=== PATIENT | female | born 1940 | race Caucasian/White ===

== ENCOUNTER 2019-10-18 10:06 | Inpatient (IN) | payer OTHER ==
--- NOTE | 2018-10-20 22:10 | NUR ---
PATIENT HAD A BLOOD GLUCOSE RESULT OF 300. 6 UNITS OF HUMALOG GIVEN AT THIS TIME.
[~2019-10-18] VITALS: Ht 162.6 cm; Wt 81.6 kg
--- NOTE | 2019-10-18 10:06 | NUR ---
PT BIBA TO BED 01.
--- NOTE | 2019-10-18 10:22 | NUR ---
78 Y/O F BIBA FROM HOME C/C HYPOGLYCEMIC. PER EMS, SON WITNESSED FALL OF PATIENT AT 0730 HOURS TODAY AND 911 WAS CALLED 0915 HOURS FROM OTHER SON. BOTH CHILDREN POOR HISTORIANS, NO FAMILY AT BEDSIDE. GIVEN DEXTROSE IN FIELD BS OF 21. PT HARD OF HEARING, A/OX3. PER EMS NKA. HX DM,ASTHMA. RX AMOXICILLIN,METRONIDAZOLONE,LORATIDINE. SIDE RAIL X1. NO N/V/D. NO FAMILY AT BEDSIDE
[2019-10-18] MEDS ORDERED: DEXTROSE 50% 50 ML SYR IVP ONE (10:25)
[2019-10-18] MEDS ORDERED: LORA10TA19 PO (10:27)
[2019-10-18] MEDS ORDERED: AMOX500C25 PO (10:27)
[2019-10-18] MEDS ORDERED: [UNRECOGNIZED DRUG - OTHER] PO (10:27)
[2019-10-18] MEDS ORDERED: GAS RELIEF PO (10:27)
--- NOTE | 2019-10-18 10:44 | NUR ---
ERMD AT BEDSIDE
[2019-10-18] MEDS ORDERED: ALBUTEROL 0.083% 2.5 MG/3 ML NEBU INH ONE (11:00)
[2019-10-18] MEDS ORDERED: methylPREDNISolone SS 125 MG/2 ML VIAL IVP ONE (11:00)
[2019-10-18] MEDS ORDERED: IPRATROPIUM 0.02% 0.5 MG/2.5 ML NEBU INH ONE (11:00)
--- NOTE | 2019-10-18 11:13 | NUR ---
LAB AT BEDSIDE
--- NOTE | 2019-10-18 11:13 | NUR ---
RT AT BEDSIDE
--- NOTE | 2019-10-18 11:26 | NUR ---
XRAY AT BEDSIDE
[2019-10-18 11:54] LABS: BASOPHILS # (AUTO) 0.1 K/uL (0.00-0.22); BASOPHILS % (AUTO) 0.5 % (0.0-2.0); EOSINOPHILS # (AUTO) 0.1 K/uL (0-0.4); EOSINOPHILS % (AUTO) 0.6 % (0.0-4.0); HEMATOCRIT 36.6 % (36-48); HEMOGLOBIN 11.7 g/dL (12.0-16.0); LYMPHOCYTES # (AUTO) 1.1 K/uL (2.5-16.5); LYMPHOCYTES % (AUTO) 7.2 % (20.5-51.1); MEAN CORPUSCULAR HEMOGLOBIN 29 pg (27-31); MEAN CORPUSCULAR HGB CONC 32 g/dL (33-37); MONOCYTES # (AUTO) 1.1 K/uL (0.8-1.0); MONOCYTES % (AUTO) 7.3 % (1.7-9.3); NEUTROPHILS # (AUTO) 12.7 K/uL (1.8-7.7); NEUTROPHILS % (AUTO) 84.4 % (42.2-75.2); PLATELET COUNT (AUTO) 459 K/uL (140-450); RED BLOOD CELL COUNT(AUTO) 3.98 MIL/uL (4.20-5.40); RED CELL DISTRIBUTION WIDTH 18.2 % (11.6-13.7); WHITE BLOOD COUNT (AUTO) 15.1 K/uL (4.8-10.8)
[2019-10-18 12:08] LABS: PROTHROMBIN TIME 10.9 secs (10.8-13.4)
[2019-10-18] MEDS ORDERED: ASPIRIN 81 MG TAB.CHEW PO ONE (12:10)
[2019-10-18] MEDS ORDERED: FUROSEMIDE 20 MG/2 ML VIAL IVP ONE (12:10)
[2019-10-18 12:12] LABS: ALBUMIN 2.7 g/dL (3.4-5.0); ANION GAP 9.8 (8-16); ASPARTATE AMINOTRANSFERASE 66 U/L (15-37); CARBON DIOXIDE 28.9 mmol/L (21-32); CHLORIDE 109 mmol/L (98-107); CREATININE 0.6 mg/dL (0.6-1.3); GLUCOSE 79 mg/dL (74-106); SODIUM SERUM 145 mmol/L (136-145); TOTAL BILIRUBIN 2.1 mg/dL (0.0-1.0); UREA NITROGEN, BLOOD 22 mg/dL (7-18)
[2019-10-18] MEDS ORDERED: DEXTROSE 10% 0 ML IV ONE (12:15)
[2019-10-18] MEDS ORDERED: cefTRIAXone 1,000 MG VIAL ONE (12:19)
[2019-10-18 12:42] LABS: POTASSIUM 2.7 mmol/L (3.5-5.1)
[2019-10-18] MEDS ORDERED: MAG SULF 2000 MG/WATER PREMIX 50 ML IV ONE ×2 (12:45→15:48)
[2019-10-18] MEDS ORDERED: KCL 20 MEQ/WATER INJ PREMIX 100 ML IV ONE (12:45)
[2019-10-18] MEDS: DEXTROSE 10% 1,000 ML IV SCH ×3 (12:47→21:19)
[2019-10-18 13:25] LABS: APPEARANCE,URINE SL CLOUDY (CLEAR); BILIRUBIN,URINE 1+ (NEGATIVE); BLOOD, URINE NEGATIVE (NEGATIVE); COLOR,URINE YELLOW (YELLOW); LEUKOCYTE ESTERASE ,URINE TRACE (NEGATIVE); NITRITE, URINE NEGATIVE (NEGATIVE); PH,URINE 5.5 (5.0-9.0); UGLUCOSE NEGATIVE (NEGATIVE)
[2019-10-18 13:36] LABS: HYALINE CASTS, URINE 0-10 /LPF (None Seen); RBC,URINE 0-5 /HPF (0-5)
--- NOTE | 2019-10-18 13:37 | NUR ---
ERMD NOTIFIED OF CHANGE OF RHYTHM AND BLOOD SUGAR. WILL CONTINUE TO MONITOR
--- NOTE | 2019-10-18 14:32 | NUR ---
PT RESTING IN BED, VSS STABLE, SIDE RAIL X2
[2019-10-18 16:30] VITALS: BP 121/65
--- NOTE | 2019-10-18 16:30 | NUR ---
RECEIVED REPORT FROM ER NURSE. PT CAME TO UNIT [facility]MN [facility]. PT WAS TRANSFERRED FROM TO UNIT BED. ADMISSION ASSESSMENT DONE. IV LINE INTACT. PT ON 4L O2 NC. BELONGING LIST SIGNED. NOTED WITH SCABS ON BILATERAL LOWER LEGS. NOTED WITH NON PITTING EDEMA TO LEG FOOT. PT IS HARD OF HEARING. SAFETY MEASURES IN PLACE. CALL LIGHT IN REACH.
--- NOTE | 2019-10-18 16:57 | NUR ---
Patient will be admitted to [facility]. Admited to TELEMETRY. Will go to room 112B. Belongings list completed. Report to MELODIE VASQUEZ.
[2019-10-18] MEDS ORDERED: ACETAMINOPHEN 325 MG TAB PO PRN (17:50)
[2019-10-18] MEDS ORDERED: ONDANSETRON 4 MG/2 ML VIAL IVP PRN (17:50)
[2019-10-18] MEDS ORDERED: HYDROcodone/APAP 5/325 MG 1 TAB TAB PO PRN (17:50)
--- NOTE | 2019-10-18 19:40 | NUR ---
SHIFT REPORT GIVEN TO LABORER VINEYARD NURSE. PT IN STABLE CONDITION. CALL LIGHT IN REACH.
--- NOTE | 2019-10-18 19:45 | NUR ---
RECEIVED PT DAYSHIFT NURSE PT IS SHEMAR GONZALEZ AAOX4 LABORED BREATHIN ON 02 2 LTS VIA NC, ON TELEMETRY SR IV ON RT AC INFUSING WELL AND HL ON LEFT AC PATENT, REPOSITIONED INITIAL ASSESSMLENT DONE
[2019-10-18 20:00] VITALS: BP 111/52
[2019-10-18] MEDS: DEXT 5% / NACL 0.45% 1,000 ML IV SCH (20:00)
[2019-10-18] MEDS: IPRATROPIUM 0.02% 0.5 MG/2.5 ML NEBU INH SCH ×2 (21:13→22:33)
[2019-10-18] MEDS: ALBUTEROL 0.083% 2.5 MG/3 ML NEBU INH SCH (21:13)
[2019-10-18] MEDS: AZITHROMYCIN 500 MG in DEXTROSE 5% 250 ML IV SCH (21:17)
--- NOTE | 2019-10-18 21:25 | NUR ---
RECEIVED PT ON 3L NC WITH SP02 OF 100%; 02 TITRATED TO 2L WITH SPO2 OF 96% AND A WHEEZING BREATH SOUNDS ON THE UPPER LOBES. NO RESPIRATORY DISTRESS NOTED AT THIS TIME. HHN TX GIVEN ORDERED WITH NO ADVERSE REACTION. FAMILY AT BEDSIDE. WILL CONTINUE TO MONITOR PT
[2019-10-18] MEDS ORDERED: DEXTROSE 50% 50 ML SYR IVP PRN (21:45)
--- NOTE | 2019-10-18 22:00 | NUR ---
PT AWAKE ON BREATHING TX , ON TELMETRY SR NOT DISTRESS NOTED
[2019-10-18] MEDS: BLOOD GLUCOSE MONITORING 1 DEV DEV FS SCH (22:33)
[2019-10-18] MEDS: INSULIN LISPRO SLIDING SCALE 100 UNITS/ML VIAL SUBQ PRN (22:34)
[2019-10-19] VITALS: BP 107/57
[2019-10-19] MEDS: ALBUTEROL 0.083% 2.5 MG/3 ML NEBU INH SCH ×4 (01:35→19:46)
--- NOTE | 2019-10-19 01:44 | NUR ---
PT SEEN AT THIS TIME WITH NO RESPIRATORY DISTRESS. HHN TX GIVEN ORDERED WITH NO ADVERSE REACTION. WILL CONTINUE TO MONITOR PT.
[2019-10-19] MEDS: DEXT 5% / NACL 0.45% 1,000 ML IV SCH ×2 (02:00→06:58)
--- NOTE | 2019-10-19 02:09 | NUR ---
PT AFTER BREATHING TX REMAIN STABLE NOT DISTRESS NOTED AND PT SLEEPING WELL ON TELE SR
[2019-10-19 04:00] VITALS: BP 108/47
[2019-10-19] MEDS: BLOOD GLUCOSE MONITORING 1 DEV DEV FS SCH ×3 (06:55→21:23)
[2019-10-19] MEDS: INSULIN LISPRO SLIDING SCALE 100 UNITS/ML VIAL SUBQ PRN ×3 (07:03→21:26)
[2019-10-19 07:13] LABS: BASOPHILS # (AUTO) 0.1 K/uL (0.00-0.22); BASOPHILS % (AUTO) 0.6 % (0.0-2.0); EOSINOPHILS # (AUTO) 0.1 K/uL (0-0.4); EOSINOPHILS % (AUTO) 0.7 % (0.0-4.0); HEMATOCRIT 28.7 % (36-48); HEMOGLOBIN 9.2 g/dL (12.0-16.0); LYMPHOCYTES # (AUTO) 1.4 K/uL (2.5-16.5); LYMPHOCYTES % (AUTO) 12.4 % (20.5-51.1); MEAN CORPUSCULAR HEMOGLOBIN 29 pg (27-31); MEAN CORPUSCULAR HGB CONC 32 g/dL (33-37); MEAN CORPUSCULAR VOLUME 91.4 fL (80-94); MONOCYTES # (AUTO) 1.8 K/uL (0.8-1.0); MONOCYTES % (AUTO) 16.1 % (1.7-9.3); NEUTROPHILS # (AUTO) 7.8 K/uL (1.8-7.7); NEUTROPHILS % (AUTO) 70.2 % (42.2-75.2); PLATELET COUNT (AUTO) 397 K/uL (140-450); RED BLOOD CELL COUNT(AUTO) 3.14 MIL/uL (4.20-5.40); RED CELL DISTRIBUTION WIDTH 18.2 % (11.6-13.7)
--- NOTE | 2019-10-19 07:15 | NUR ---
RECEIVED REPORT FROM ASSOCIATE STORE MANAGER NURSE. PT IS RESTING IN BED. AOX4, NO SIGNS OF DISTRESS. PT HAS RT HAND 20G WITH D5 1/2 NS INFUSING AT 75ML/HR. CALL LIGHT WITHIN PT'S REACH, BED ON LOW, SIDERAILS UP. WILL CONTINUE TO MONITOR
[2019-10-19 08:00] VITALS: BP 100/50
--- NOTE | 2019-10-19 08:20 | NUR ---
PT IS SITTING ON HER BED EATING BREAKFAST. NO SIGNS OF DISTRESS. SCHEDULED MEDS GIVEN. CALL LIGHT WITHIN PT'S REACH. WILL CONTINUE TO MONITOR
[2019-10-19] MEDS: methylPREDNISolone SS 40 MG/ML VIAL IVP SCH (08:28)
[2019-10-19] MEDS: ENOXAPARIN 30 MG/0.3 ML SYR SUBQ SCH (08:30)
--- NOTE | 2019-10-19 08:31 | NUR ---
PATIENT HAS BEEN SCREENED AND CATEGORIZED MODERATE NUTRITION RISK. PATIENT WILL BE SEEN WITHIN 3-5 DAYS OF ADMISSION. 10/21/19 10/23/[address]
--- NOTE | 2019-10-19 08:34 | NUR ---
AWAKE AND ALERT NO SOB NOTED PATIENT WITH BREAK FAST TRAY AT THIS TIME SEAT COVER MAKER TO ATTEMPT HHN THERAPY AND RESPIRATORY DRUGS AT A LATER TIME
--- NOTE | 2019-10-19 08:40 | NUR ---
PATIENT HAS BEEN SCREENED AND CATEGORIZED MODERATE NUTRITION RISK. PATIENT WILL BE SEEN WITHIN 3-5 DAYS OF ADMISSION. 10/21/19 10/23/[address]
[2019-10-19] MEDS: IPRATROPIUM 0.02% 0.5 MG/2.5 ML NEBU INH SCH ×3 (10:23→19:46)
[2019-10-19 12:00] VITALS: BP 100/52
--- NOTE | 2019-10-19 13:15 | NUR ---
SCHEDULED MEDS GIVEN. PT IS SITTING ON BED. NO SIGNS OF DISTRESS. CALL LIGHT WITHIN PT'S REACH. WILL CONTINUE TO MONITOR
--- NOTE | 2019-10-19 14:43 | NUR ---
SATURATION 90% ON SUPPLEMENTAL OXYGEN AT 2 LPM VIA NC POST HHN THERAPY INCREASED FIO2 TO 3 LPM SENIOR LINUX ENGINEER TO NOTIFY RN
--- NOTE | 2019-10-19 15:23 | NUR ---
GASTON/RN NOTIFIED OF INCREASED FIO2 TO 3 LPM VIA NC
[2019-10-19 16:00] VITALS: BP 101/49
--- NOTE | 2019-10-19 16:00 | NUR ---
FREQUENT ROUNDING DONE. ASSIST SEAT INSTALLER IN CLEANING THE PT.
--- NOTE | 2019-10-19 16:30 | NUR ---
BLD GLUCOSE CHECKED = 331. 8 UNITS GIVEN. SCHEDULED MEDS GIVEN WELL. PT IS STABLE. NO SIGNS OF DISTRESS. CALL LIGHT WITHIN PT'S REACH. WILL CONTINUE TO MONITOR
[2019-10-19] MEDS: LIDOCAINE VISCOUS 2% 20 ML UDC PO SCH (16:58)
--- NOTE | 2019-10-19 19:05 | NUR ---
WOUND PHOTOGRAPH TAKEN AND ATTACHED TO CHART. PT HAS NEW BLISTER LIKE WOUND IN THE RIGHT LOWER LEG.
--- NOTE | 2019-10-19 19:20 | NUR ---
REPORT GIVEN TO BANDSAW OPERATOR NURSE FOR CONTINUITY OF CARE. PT IS STABLE, NO SIGNS OF DISTRESS. CALL LIGHT WITHIN PT'S REACH, BED ON LOW, SIDERAILS UP.
--- NOTE | 2019-10-19 19:25 | NUR ---
RECEIVED PT FROM DAY SHIFT NURSE PT AAOX4 ON BED REST AND LABORED BRETHING ON 4 LTS VIA NC SAT [address] IV ON LEFT AC INGUSING WELL PT REPOSITIONED INITIAL ASSESSMENT DONE,
[2019-10-19 20:00] VITALS: BP 119/58
[2019-10-19] MEDS: AZITHROMYCIN 500 MG in DEXTROSE 5% 250 ML IV SCH (21:17)
--- NOTE | 2019-10-19 21:30 | NUR ---
BLOOD SUGAR TEST 258 COVERAGE WITH 6 UNITS HUMALOG FOLLOW PROTOCL AND HS SNACK IS GIVEN
[2019-10-19] MEDS ORDERED: TRANSPARENT DRESSING TP PRN (22:55)
[2019-10-20] VITALS: BP 101/59
[2019-10-20] MEDS: IPRATROPIUM 0.02% 0.5 MG/2.5 ML NEBU INH SCH ×4 (01:43→19:33)
[2019-10-20] MEDS: ALBUTEROL 0.083% 2.5 MG/3 ML NEBU INH SCH ×4 (01:44→19:33)
--- NOTE | 2019-10-20 01:56 | NUR ---
PT HAS BEEN MONITORING CLOSE ON TELMETRY SR ON 10 24 LTS VIA NC, REPOSITIONED Q2H NOT DISTRESS NOTED
[2019-10-20 04:00] VITALS: BP 104/49
--- NOTE | 2019-10-20 04:00 | NUR ---
SPONGE BATH GIVEN LINEN CHANGED NOT SOB NOTED ON TELE SR , IV ON LEFT AC INFUSING WELL
[2019-10-20] MEDS: BLOOD GLUCOSE MONITORING 1 DEV DEV FS SCH ×4 (06:39→21:00)
[2019-10-20] MEDS: INSULIN LISPRO SLIDING SCALE 100 UNITS/ML VIAL SUBQ PRN ×3 (06:41→22:18)
--- NOTE | 2019-10-20 07:05 | NUR ---
BLOOD SUGAR TEST 189 COVERAGEWITH2 UNITS SUBQ HUMALOG ORDER ANDFOLLOW PROTOCOL
--- NOTE | 2019-10-20 07:15 | NUR ---
RECEIVED REPORT FROM TOOL CLERK NURSE NOLAN FOR CONTINUITY OF CARE. PT IN STABLE CONDITION. RESPIRATIONS EVEN AND UNLABORED, 02 3L VIA NC. IV INTACT AND PATENT. SAFETY MEASURES IN PLACE. BED IN LOW POSITION. BED ALARM ON. CALL LIGHT AT BEDSIDE. WILL CONTINUE TO MONITOR.
[2019-10-20 07:33] LABS: BASOPHILS # (AUTO) 0.1 K/uL (0.00-0.22); BASOPHILS % (AUTO) 0.5 % (0.0-2.0); EOSINOPHILS # (AUTO) 0.3 K/uL (0-0.4); EOSINOPHILS % (AUTO) 2.7 % (0.0-4.0); HEMATOCRIT 28.8 % (36-48); HEMOGLOBIN 9.2 g/dL (12.0-16.0); LYMPHOCYTES # (AUTO) 1.6 K/uL (2.5-16.5); LYMPHOCYTES % (AUTO) 15.8 % (20.5-51.1); MEAN CORPUSCULAR HEMOGLOBIN 29 pg (27-31); MEAN CORPUSCULAR HGB CONC 32 g/dL (33-37); MEAN CORPUSCULAR VOLUME 91.3 fL (80-94); MONOCYTES # (AUTO) 1.4 K/uL (0.8-1.0); MONOCYTES % (AUTO) 13.6 % (1.7-9.3); NEUTROPHILS # (AUTO) 6.9 K/uL (1.8-7.7); NEUTROPHILS % (AUTO) 67.4 % (42.2-75.2); PLATELET COUNT (AUTO) 355 K/uL (140-450); RED BLOOD CELL COUNT(AUTO) 3.15 MIL/uL (4.20-5.40); RED CELL DISTRIBUTION WIDTH 17.9 % (11.6-13.7); WHITE BLOOD COUNT (AUTO) 10.3 K/uL (4.8-10.8)
[2019-10-20 07:37] LABS: CHLORIDE 107 mmol/L (98-107); CREATININE 0.9 mg/dL (0.6-1.3); GLUCOSE 191 mg/dL (74-106); POTASSIUM 3.6 mmol/L (3.5-5.1); SODIUM SERUM 141 mmol/L (136-145); UREA NITROGEN, BLOOD 28 mg/dL (7-18)
[2019-10-20 07:38] LABS: ANION GAP 10.2 (8-16); CARBON DIOXIDE 27.4 mmol/L (21-32)
[2019-10-20 08:00] VITALS: BP 103/49
[2019-10-20] MEDS: FUROSEMIDE 40 MG/4 ML VIAL IVP SCH ×2 (08:30→17:23)
[2019-10-20] MEDS: methylPREDNISolone SS 40 MG/ML VIAL IVP SCH (08:31)
[2019-10-20] MEDS: LIDOCAINE VISCOUS 2% 20 ML UDC PO SCH ×3 (08:48→17:23)
[2019-10-20] MEDS: ENOXAPARIN 30 MG/0.3 ML SYR SUBQ SCH (08:53)
[2019-10-20] MEDS: DEXT 5% / NACL 0.45% 1,000 ML IV SCH ×2 (08:54→22:12)
[2019-10-20] MEDS: MILD SOAP AND WATER TP SCH (08:55)
--- NOTE | 2019-10-20 08:56 | NUR ---
GAVE ORDERED DUE MEDICATIONS AT THIS TIME. PT TOLERATED WELL. WILL CONTINUE TO MONITOR.
--- NOTE | 2019-10-20 10:30 | NUR ---
PT REFUSED ABG.
--- NOTE | 2019-10-20 10:33 | NUR ---
CHANGED LINENS AND CLEANED AT THIS TIME. PT TOLERATED WELL. RESPIRATIONS EVEN AND UNLABORED. BED IN LOW POSITION. BED ALARM ON. CALL LIGHT AT BEDSIDE. WILL CONTINUE TO MONITOR
[2019-10-20 12:00] VITALS: BP 100/51
--- NOTE | 2019-10-20 12:59 | NUR ---
PT EATING LUNCH AT THIS TIME. RESPIRATIONS EVEN AND UNLABORED. BED IN LOW POSITION. BED ALARM ON. CALL LIGHT AT BEDSIDE. WILL CONTINUE TO MONITOR
--- NOTE | 2019-10-20 13:57 | NUR ---
DC PLANN[age] YRS OLD FEMALE WAS ADMITTED FROM HOME WITH A DX OF CHF, PNA, AND HYPOGLYCEMIA K+2.7. PT HAS A HX OF ASTHMA DM, HTN AND HYPERLIPIDEMIA. ADMINISTERED K-RIDER ,SOLU-MEDROL , ROCEPHIN AND ZITHROMAX IV ABX AND LASIX IV , RT PROTOCOL ,BLOOD, URINE AND SPUTUM CULTURE.DC PLAN TO GO HOME WHEN STABLE CM TO FOLLOW Addendum: 10/23/19 at 0920 by Bethany Ansari CM DC PLANNING: FAXED TO [facility] , WAITING FOR PHYSICAL THERAPY NOTE CM TO FOLLOW Addendum: 10/23/19 at 1328 by Bethany Ansari CM DC PLANNING RECEIVED A CALL FROM [facility] UNABLE TO ACCEPT THE PT BECAUSE THEY ARE NOT CONTRACTED WITH THE INSURANCE CALLED SURENDRA [facility]ILK[facility] AT [phone] STATED TO TRY ALL IN HOME HEALTH,NO ANSWER [facility] STATED THEY DON'T HAVE AN RN SERVED IN [facility] AT [phone] FAXED ALL THE PAPER WORK [phone] WILL CALL US BACK. Addendum: 10/23/19 at 1503 by Bethany Ansari DC PLANNING I RECEIVED A CALL FROM [facility] [phone] IS ACCEPTING THE PATIENT AND WILL START THE CARE TOMORROW
[2019-10-20] MEDS: LORazepam 2 MG/ML VIAL IVP PRN ×2 (14:40→22:12)
--- NOTE | 2019-10-20 14:43 | NUR ---
PT SLEEPING AT THIS TIME. RESPIRATIONS EVEN AND UNLABORED. BED IN LOW POSITION. BED ALARM ON. CALL LIGHT AT BEDSIDE. WILL CONTINUE TO MONITOR
[2019-10-20 16:00] VITALS: BP 107/53
--- NOTE | 2019-10-20 16:58 | NUR ---
PT RELATIVE MARITA (SISTER) CALLED INFORMED THEM THAT THEY NEEDED TO SPEAK TO PT ABOUT CONDITION DUE TO HIPPA.
--- NOTE | 2019-10-20 17:50 | NUR ---
ASSISTED PT WITH CALLING DAUGHTER ALLISON . PT ABLE TO TALK IN STABLE CONDITION. RESPIRATIONS EVEN AND UNLABORED. BED IN LOW POSITION. BED ALARM ON. CALL LIGHT AT BEDSIDE. WILL CONTINUE TO MONITOR
--- NOTE | 2019-10-20 19:31 | NUR ---
GAVE REPORT TO FITTER ARMAMENT NURSE FOR CONTINUITY OF CARE. PT IN STABLE CONDITION.
--- NOTE | 2019-10-20 19:32 | NUR ---
RECEIVED BEDSIDE SHIFT REPORT FROM AM SHIFT NURSE HILARIO. PATIENT IS LYING ON BED IN HIGH FOWLERS, AWAKE AND ALERT. NO SOB OR DISTRESS NOTED, ON 3LPM VIA NASAL CANNULA. IV ACCESS ON LEFT AC 20 GAUGE, PATENT, INTACT AND INFUSING WELL. NOTED WITH BLISTERS ON LOWER EXTREMITIES. BED IN LOW, SAFETY PRECAUTIONS IN PLACE. BOARD UPDATED. CALL LIGHT PLACED WITHIN PATIENT REACH. WILL CONTINUE TO MONITOR PATIENT.
[2019-10-20] MEDS: AZITHROMYCIN 500 MG in DEXTROSE 5% 250 ML IV SCH (22:01)
--- NOTE | 2019-10-20 22:10 | NUR ---
PATIENT HAD A BLOOD GLUCOSE RESULT OF 300. 6 UNITS OF HUMALOG GIVEN AT THIS TIME. Addendum: 10/21/19 at 0048 by Paulette Licona RN WRONG YEAR- NEW NOTE MADE
[2019-10-21 01:00] VITALS: BP 107/60
[2019-10-21] MEDS: ALBUTEROL 0.083% 2.5 MG/3 ML NEBU INH SCH ×4 (01:00→20:36)
[2019-10-21] MEDS: IPRATROPIUM 0.02% 0.5 MG/2.5 ML NEBU INH SCH ×4 (01:00→19:00)
--- NOTE | 2019-10-21 02:00 | NUR ---
PATIENT IN STABLE CONDITION. ENDORSED TO CHARGE NURSE MAYUR FOR CONTINUITY OF CARE.
--- NOTE | 2019-10-21 02:01 | NUR ---
RECEIVED PT SLEEPING, OPEN EYES TO NAME, SPEAKS IN FULL SENTENCES, NO SOB NOTED, IVF INFUSING WELL, SAFETY MEASURES IN PLACE, CALL LIGHT WITHIN REACH, MONITORED CLOSELY
[2019-10-21 03:30] VITALS: BP 115/68
--- NOTE | 2019-10-21 03:30 | NUR ---
PT SEEN AWAKE, AUDIBLE WHEEZING NOTED, PAGED RT RADJE, WILL COME AND GIVE BREATHING TX, VITAL SIGNS STABLE, 95% ON O2 3L NC, IVF INFUSING WELL, MONITORED CLOSELY.
--- NOTE | 2019-10-21 05:00 | NUR ---
IV LINE INFILTRATED, CANNULA INTACT, NEW IV LINE INSERTED TO RT HAND, RESUMED IVF OF D5 1/2 NS AT 75ML/H, MONITORED CLOSELY.
[2019-10-21] MEDS: INSULIN LISPRO SLIDING SCALE 100 UNITS/ML VIAL SUBQ PRN ×4 (05:48→21:15)
--- NOTE | 2019-10-21 05:50 | NUR ---
PT AWAKE, AAOX4, MILD SOB WHEN TALKING BUT ABLE TO SPEAK IN COMPLETE SENTENCE, MAINTAINED ON O2 AT 3L NC, BLOOD SUGAR CHECKED WITH 218 RESULT, COVERAGE GIVEN, PT REQUESTING IF SHE CAN TALKED TO HER GREG, NO NUMBER ON FILE, TALKED TO SON ALENA, STATED HE WILL CALL BACK TO GIVE GREG'S (STEPFATHER) NUMBER, PT MADE AWARE, PT WATCHING TV AT THIS TIME, NO DISTRESS NOTED, MONITORED CLOSELY.
[2019-10-21] MEDS: BLOOD GLUCOSE MONITORING 1 DEV DEV FS SCH ×4 (06:30→21:00)
[2019-10-21 06:46] LABS: BASOPHILS # (AUTO) 0.1 K/uL (0.00-0.22); BASOPHILS % (AUTO) 0.7 % (0.0-2.0); EOSINOPHILS # (AUTO) 0.3 K/uL (0-0.4); EOSINOPHILS % (AUTO) 2.4 % (0.0-4.0); HEMATOCRIT 27.9 % (36-48); LYMPHOCYTES # (AUTO) 1.5 K/uL (2.5-16.5); LYMPHOCYTES % (AUTO) 13.4 % (20.5-51.1); MEAN CORPUSCULAR HEMOGLOBIN 30 pg (27-31); MEAN CORPUSCULAR HGB CONC 32 g/dL (33-37); MEAN CORPUSCULAR VOLUME 92.3 fL (80-94); MONOCYTES # (AUTO) 1.6 K/uL (0.8-1.0); MONOCYTES % (AUTO) 13.6 % (1.7-9.3); NEUTROPHILS # (AUTO) 7.9 K/uL (1.8-7.7); NEUTROPHILS % (AUTO) 69.9 % (42.2-75.2); PLATELET COUNT (AUTO) 363 K/uL (140-450); RED BLOOD CELL COUNT(AUTO) 3.02 MIL/uL (4.20-5.40); RED CELL DISTRIBUTION WIDTH 17.9 % (11.6-13.7); WHITE BLOOD COUNT (AUTO) 11.4 K/uL (4.8-10.8)
[2019-10-21 07:30] LABS: ANION GAP 8.5 (8-16); CARBON DIOXIDE 30.2 mmol/L (21-32); CHLORIDE 108 mmol/L (98-107); CREATININE 0.8 mg/dL (0.6-1.3); GLUCOSE 233 mg/dL (74-106); POTASSIUM 3.7 mmol/L (3.5-5.1); SODIUM SERUM 143 mmol/L (136-145); UREA NITROGEN, BLOOD 27 mg/dL (7-18)
--- NOTE | 2019-10-21 07:30 | NUR ---
RECEIVED BEDSIDE REPORT FROM NIGHTSHIFT NURSE. PT LYING IN BED UPON ARRIVAL. ABLE TO MAKE NEEDS KNOWN. SKIN WARM AND DRY TO TOUCH. RESPIRATIONS EVEN AND UNLABORED WITH MILD SOB WHEN TALKING. NO RESPIRATORY DISTRESS NOTED. NC RUNNING AT 3L. IV SITE IN R HAND 22G IS CLEAN, DRY, AND INTACT. SAFETY MEASURES IN PLACE. WILL CONTINUE TO MONITOR.
[2019-10-21 08:00] VITALS: BP 108/57
[2019-10-21] MEDS: LIDOCAINE VISCOUS 2% 20 ML UDC PO SCH ×3 (08:14→17:15)
[2019-10-21] MEDS: FUROSEMIDE 40 MG/4 ML VIAL IVP SCH ×2 (08:15→17:15)
--- NOTE | 2019-10-21 08:15 | NUR ---
ADMINISTERED SCHED MED PRESCRIBED PER MD ORDER. PT TOLERATED WELL. MEDICATION EDUCATION PERFORMED. PT VERBALIZED UNDERSTANDING. WILL CONTINUE TO MONITOR.
[2019-10-21] MEDS: methylPREDNISolone SS 40 MG/ML VIAL IVP SCH (08:16)
[2019-10-21] MEDS: ENOXAPARIN 30 MG/0.3 ML SYR SUBQ SCH (08:17)
[2019-10-21 12:00] VITALS: BP 147/81
--- NOTE | 2019-10-21 12:23 | NUR ---
ADMINISTERED SCHED MED PRESCRIBED PER MD ORDER. PT TOLERATED WELL. MEDICATION EDUCATION PERFORMED. PT VERBALIZED UNDERSTANDING. WILL CONTINUE TO MONITOR.
[2019-10-21] MEDS: DEXT 5% / NACL 0.45% 1,000 ML IV SCH (12:38)
[2019-10-21 16:00] VITALS: BP 130/65
--- NOTE | 2019-10-21 16:11 | NUR ---
HOURLY ROUNDING. PT LYING IN BED UPON ARRIVAL. FLACC 0. SKIN WARM AND DRY TO TOUCH. RESPIRATIONS EVEN AND UNLABORED WITH NO SOB OR RESPIRATORY DISTRESS. SAFETY MEASURES IN PLACE. WILL CONTINUE TO MONITOR.
--- NOTE | 2019-10-21 17:22 | NUR ---
ADMINISTERED SCHED MED PRESCRIBED PER MD ORDER. PT TOLERATED WELL. MEDICATION EDUCATION PERFORMED. PT VERBALIZED UNDERSTANDING. WILL CONTINUE TO MONITOR.
--- NOTE | 2019-10-21 19:32 | NUR ---
ENDORSED TO [facility] NURSE. PT LYING IN BED UPON ARRIVAL. FLACC 0 . SKIN WARM AND DRY TO TOUCH. RESPIRATIONS EVEN AND UNLABORED WITH NO SOB OR RESPIRATORY DISTRESS. SAFETY MEASURES IN PLACE. PT IS STABLE
--- NOTE | 2019-10-21 19:33 | NUR ---
RECEIVED REPORT FROM DAY SHIFT NURSE. PT LYING IN BED, AAOX4. DENIES PAIN. ON O2 AT 3L/MIN VIA NC. NO SOB NOTED. IV TO RIGHT HAND #22G, D51/2NS AT 75 ML/HR, INFUSING WELL. PT HAS BLISTERS ON RIGHT LOWER LEG WITH TRANSPARENT DRESSING. SCABS ON LEFT LEG, MINING MANAGER. SAFETY PRECAUTION IN PLACE. CALL LIGHT WITHIN REACH.
[2019-10-21 20:00] VITALS: BP 109/55
--- NOTE | 2019-10-21 21:00 | NUR ---
ASKED RT TO HELP COLLECT SPUTUM FROM PT. PER RT, PT UNABLE TO COUGH OUT SPUTUM AFTER BREATHING TREATMENT. PER PT, SHE WANTS TO REST FOR NOW AND SHE WILL TRY AGAIN TOMORROW MORNING.
--- NOTE | 2019-10-21 21:15 | NUR ---
PT'S BLOOD SUGAR 297. PT'S BLOOD SUGAR TODAY ON HIGH 300'S. PT ON IVF D5 1/2NS AT 75 ML/HR AND ON REGULAR DIET. WILL PAGE DR. CUADRA IF HE STILL WANTS TO CONTINUE IVF D5 1/2NS AT 75 ML/HR.
[2019-10-21] MEDS: AZITHROMYCIN 500 MG in DEXTROSE 5% 250 ML IV SCH (21:17)
--- NOTE | 2019-10-21 21:40 | NUR ---
RECEIVED A CALL FROM DR. PEARCE, MISSILE CONTROL PILOT FOR DR. CUADRA. MADE AWARE OF PT'S BLOOD SUGAR FOR TODAY. MD ORDERED TO CHANGE THE DIET FROM REGULAR TO CCHO DIET AND DISCONTINUE IVF D5 1/2NS.
[2019-10-22] VITALS: BP 111/59
--- NOTE | 2019-10-22 00:10 | NUR ---
PT LYING COMFORTABLY IN BED. V/S TAKEN. ALL NEEDS ATTENDED AT THIS TIME. FALL PRECAUTION IN PLACE. CALL LIGHT WITHIN REACH.
[2019-10-22] MEDS: IPRATROPIUM 0.02% 0.5 MG/2.5 ML NEBU INH SCH (01:00)
[2019-10-22] MEDS: ALBUTEROL 0.083% 2.5 MG/3 ML NEBU INH SCH (01:00)
--- NOTE | 2019-10-22 03:00 | NUR ---
PT SLEEPING BUT EASILY AROUSABLE. RESP EVEN AND UNLABORED. NO S/S OF PAIN OR DISCOMFORT. CALL LIGHT WITHIN REACH.
[2019-10-22 04:00] VITALS: BP 132/63
--- NOTE | 2019-10-22 05:00 | NUR ---
PT RESTING IN BED WITH EYES CLOSED. NO S/S OF RESP DISTRESS. NO S/S OF PAIN OR DISCOMFORT.
[2019-10-22] MEDS: INSULIN LISPRO SLIDING SCALE 100 UNITS/ML VIAL SUBQ PRN ×4 (06:15→21:16)
[2019-10-22] MEDS: ALBUTEROL 0.083% 2.5 MG/3 ML NEBU INH PRN (06:26)
--- NOTE | 2019-10-22 06:29 | NUR ---
PT'S BLOOD SUGAR 202. 4 UNITS OF HUMALOG SUBQ GIVEN.
[2019-10-22] MEDS: BLOOD GLUCOSE MONITORING 1 DEV DEV FS SCH ×4 (06:31→21:16)
--- NOTE | 2019-10-22 07:05 | NUR ---
ENDORSED PT TO DAY SHIFT NURSE. PT IN STABLE CONDITION.
--- NOTE | 2019-10-22 07:10 | NUR ---
RECEIVED BEDSIDE REPORT FROM NIGHTSHIFT NURSE. PT RESTING IN BED UPON ARRIVAL. ABLE TO MAKE NEEDS KNOWN. RESPIRATIONS EVEN AND UNLABORED WITH NO SOB OR RESPIRATORY DISTRESS. SKIN WARM AND DRY TO TOUCH. IV SITE IN RIGHT HAND 22G IS CLEAN, DRY, AND INTACT. SAFETY MEASURES IN PLACE. WILL CONTINUE TO MONITOR.
[2019-10-22 08:00] VITALS: BP 119/93
[2019-10-22] MEDS: LIDOCAINE VISCOUS 2% 20 ML UDC PO SCH ×3 (08:38→17:44)
[2019-10-22] MEDS: ENOXAPARIN 30 MG/0.3 ML SYR SUBQ SCH (08:41)
[2019-10-22] MEDS: methylPREDNISolone SS 40 MG/ML VIAL IVP SCH (08:42)
[2019-10-22] MEDS: FUROSEMIDE 40 MG/4 ML VIAL IVP SCH ×2 (08:42→17:44)
--- NOTE | 2019-10-22 08:42 | NUR ---
ADMINISTERED SCHED MED PRESCRIBED PER MD ORDER. PT TOLERATED WELL. MEDICATION EDUCATION PERFORMED. PT VERBALIZED UNDERSTANDING. SAFETY MEASURES IN PLACE. WILL CONTINUE TO MONITOR.
--- NOTE | 2019-10-22 10:19 | NUR ---
PHYSICIAN PUT IN ORDER FOR DC TODAY. PT IS AWARE AND REQUESTED TO LEAVE SHORTLY AFTER LUNCH. SAFETY MEASURES IN PLACE. WILL CONTINUE TO MONITOR.
[2019-10-22] MEDS ORDERED: FURO-572 PO (10:30)
[2019-10-22] MEDS ORDERED: PRED20TA5 PO (10:49)
[2019-10-22] MEDS ORDERED: Z-PACK (10:50)
--- NOTE | 2019-10-22 11:30 | NUR ---
CALLED PT SON ANDRESSA TO CONFIRM THAT HE WAS GOING TO BE TAKING THE PT HOME AND HE SAID HE HAS A ANALYTICAL TECH COMING TO THE PATIENT'S ROOM TO SIGN SOME DOCUMENTS AROUND 1300 SO HE REQUESTED HER TO LEAVE AFTER THEY ARE FINISHED WITH THEIR MEETING. SAFETY MEASURES IN PLACE WILL CONTINUE TO MONITOR
[2019-10-22 12:00] VITALS: BP 128/78
--- NOTE | 2019-10-22 12:36 | NUR ---
ADMINISTERED SCHED MED PRESCRIBED PER MD ORDER. PT TOLERATED WELL. MEDICATION EDUCATION PERFORMED. PT VERBALIZED UNDERSTANDING. SAFETY MEASURES IN PLACE. WILL CONTINUE TO MONITOR.
[2019-10-22] MEDS: ALBUTEROL SULFATE/IPRATROPIU 3 ML SOL IH SCH ×2 (12:58→19:54)
--- NOTE | 2019-10-22 12:58 | NUR ---
PT REFUSED BREATHING TX STATING THAT HER NOSE HURTS NO SIGNS OF DISTRESS OR SOB AT THIS TIME
--- NOTE | 2019-10-22 13:48 | NUR ---
ADMINISTERED SCHED MED PRESCRIBED PER MD ORDER. PT TOLERATED WELL. MEDICATION EDUCATION PERFORMED. PT VERBALIZED UNDERSTANDING. SAFETY MEASURES IN PLACE. WILL CONTINUE TO MONITOR.
--- NOTE | 2019-10-22 14:15 | NUR ---
SPOKE WITH SON ANDRESSA AT BEDSIDE. SON SAID THAT HE DOES NOT HAVE A WAY FOR THE PT TO GET HOME SINCE HE RODE HIS BICYCLE TO THE HOSPITAL. PT AND FAMILY WERE EDUCATED THAT WE COULD PROVIDE TRANSPORTATION SUCH A [place] FOR THEM. ANDRESSA SAID THAT HE DOES NOT HAVE THE KEYS TO THE PT'S HOUSE NOR THE PT'S WALKER. PT IS UNABLE TO WALK WITHOUT ASSISTANCE. THE SON THAT LIVES WITH THE PT IS NOT HOME TO HELP TAKE CARE OF PT NOR IS HE ABLE TO GRAB THE KEYS AND WALKER. SON ALSO DID NOT ANSWER WHEN CALLED. PT ALSO REFUSED BEING TRANSFERRED TO SNF. PT SAID THAT SHE DOES NOT WANT TO GO TO A SNF. WHEN EDUCATED THAT IT WOULD ONLY BE TEMPORARY, PT STILL REFUSED BEING TRANSFERRED. DR. HESTER WAS PAGED AND HE PUT IN AN ORDER TO CANCEL THE DISCHARGE AND TO TRY AGAIN TOMORROW. SAFETY MEASURES IN PLACE. WILL CONTINUE TO MONITOR
--- NOTE | 2019-10-22 15:30 | NUR ---
HOURLY ROUNDING. PT RESTING IN BED. UPON ARRIVAL. ABLE TO MAKE NEEDS KNOWN. RESPIRATIONS EVEN AND UNLABORED WITH NO SOB OR RESPIRATORY DISTRESS. SKIN WARM AND DRY TO TOUCH. SAFETY MEASURES IN PLACE. WILL CONTINUE TO MONITOR
[2019-10-22 16:00] VITALS: BP 132/63
--- NOTE | 2019-10-22 16:30 | NUR ---
PT BLOOD SUGAR IS 356. 10 UNITS OF INSULIN WILL BE GIVEN WITH DINNER. SAFETY MEASURES IN PLACE. WILL CONTINUE TO MONITOR.
--- NOTE | 2019-10-22 17:45 | NUR ---
ADMINISTERED SCHED MED PRESCRIBED PER MD ORDER. PT TOLERATED WELL. MEDICATION EDUCATION PERFORMED. PT VERBALIZED UNDERSTANDING. SAFETY MEASURES IN PLACE. WILL CONTINUE TO MONITOR.
--- NOTE | 2019-10-22 19:15 | NUR ---
RECIEVED PT AAOX4 , NID , IV SITE INTACT AND PATENT , NO CO/O PAIN AT THIS TIME . ON SAFETY / FALL PRECAUTION PROTOCOL - CALL LIGHT WITHIN REACH . POC DISCUSSED AND VERBALIZE UNDERSTANDING . WILL CONT. TO MONITOR.
--- NOTE | 2019-10-22 19:15 | NUR ---
ENDORSED TO NIGHTSHIFT NURSE. PT RESTING IN BED UPON ARRIVAL. ABLE TO MAKE NEEDS KNOWN. RESPIRATIONS EVEN AND UNLABORED WITH NO SOB OR RESPIRATORY DISTRESS. SAFETY MEASURES IN PLACE. PT IS STABLE.
[2019-10-22 20:00] VITALS: BP 130/70
[2019-10-22] MEDS: AZITHROMYCIN 500 MG in DEXTROSE 5% 250 ML IV SCH (20:52)
--- NOTE | 2019-10-22 22:00 | NUR ---
MADE ROUNDS . NO S/SXS OF ACUTE DISTRESS NOTED AT THIS TIME . CALL LIGHT WITHIN REACH.
[2019-10-23] VITALS: BP 133/70
--- NOTE | 2019-10-23 | NUR ---
MADE ROUNDS . BREATHING UNLABORED AND EVEN . - ON FISH CLEANER MACHINE TENDER . WILL CONT. TO MONITOR.
[2019-10-23] MEDS: ALBUTEROL SULFATE/IPRATROPIU 3 ML SOL IH SCH ×3 (01:17→13:54)
--- NOTE | 2019-10-23 02:00 | NUR ---
SLEEPING - CHEST RISE AND FALL EQUALLY - CALL LIGHT WITHIN REACH.
[2019-10-23 04:00] VITALS: BP 120/73
--- NOTE | 2019-10-23 04:00 | NUR ---
MADE ROUNDS . WET DIAPER - FULLY SOAKED - MASTER TECHNICIAN CHANGING THE DIAPER . CALL LIGHT WITHIN REACH.
[2019-10-23] MEDS: BLOOD GLUCOSE MONITORING 1 DEV DEV FS SCH ×2 (05:42→12:12)
--- NOTE | 2019-10-23 06:00 | NUR ---
MADE ROUNDS . NO COMPLAIN MADE .
--- NOTE | 2019-10-23 07:20 | NUR ---
RECEIVED PATIENT AT BEDSIDE FOR CONTINUITY OF CARE FROM ASPHALT TILE FLOOR LAYER NURSE. IV SITE INTACT AND PATENT SALINE LOCKED, NO CO/O PAIN AT THIS TIME, RESPIRATIONS EVEN AND UNLABORED ON 3L O2 VIA NC. UPDATED BOARD, VERBALIZED PLAN OF CARE WITH PATIENT, PATIENT VERBALIZED UNDERSTANDING. SAFETY PRECAUTIONS IN PLACE, CALL LIGHT WITHIN REACH, WILL CONTINUE TO MONITOR PATIENT.
[2019-10-23 08:00] VITALS: BP 130/64
[2019-10-23] MEDS: MILD SOAP AND WATER TP SCH (08:15)
[2019-10-23] MEDS: methylPREDNISolone SS 40 MG/ML VIAL IVP SCH (08:26)
[2019-10-23] MEDS: LIDOCAINE VISCOUS 2% 20 ML UDC PO SCH ×2 (08:26→12:13)
[2019-10-23] MEDS: FUROSEMIDE 40 MG/4 ML VIAL IVP SCH (08:26)
--- NOTE | 2019-10-23 08:26 | NUR ---
ORDERED MEDICATIONS GIVEN. PATIENT TOLERATED THEM. PATIENT HAS NO COMPLAINTS AT THIS TIME. AWARE OF DISCHARGE PLANS, CONFUSED ABOUT DISCHARGED TIME. INFORMED PATIENT ABOUT DISCHARGE PROCESS, SHE VERBALIZED UNDERSTANDING. SPOKE TO PATIENT'S SON ALENA ABOUT PT'S IMPENDING DISCHARGE. HE STATED HE WILL BE AT HOSPITAL LATER.
[2019-10-23] MEDS: ENOXAPARIN 30 MG/0.3 ML SYR SUBQ SCH (08:27)
--- NOTE | 2019-10-23 09:00 | NUR ---
PT IN TO SEE PATIENT. WILL WAIT FOR THEIR RECOMMENDATIONS.
--- NOTE | 2019-10-23 09:45 | NUR ---
PATIENT WEANING FROM 3L O2 TO 1L, PATIENT TOLERATING IT WELL, O2 SATURATION 90-91%. NO C/O OF SOB OR DISTRESS. WILL CONTINUE TO MONITOR PATIENT.
[2019-10-23 12:00] VITALS: BP 124/67
[2019-10-23] MEDS: INSULIN LISPRO SLIDING SCALE 100 UNITS/ML VIAL SUBQ PRN (12:16)
--- NOTE | 2019-10-23 12:19 | NUR ---
Nurse remained to follow up and document immunization status on discharge assessment.
--- NOTE | 2019-10-23 13:00 | NUR ---
PATIENT AWARE OF PENDING DISCHARGE, WAITING FOR HOME HEALTH AGENCY TO BE ARRANGED, SON ALENA AT BEDSIDE. PATIENT REFUSED FLU VACCINE, STATED THAT SHE RECEIVED HER PNA VACCINE IN 2017.
--- NOTE | 2019-10-23 15:45 | NUR ---
DISCHARGE INSTRUCTIONS AND EDUCATION GIVEN TO PATIENT. INSTRUCTIONS ABOUT TAKING MEDICATIONS PRESCRIBED, FOLLOW UP WITH PCP AND HOME HEALTH. PATIENT STATED THAT SHE HAD PNA VACCINE IN 2017, REFUSED FLU VACCINE. IV REMOVED, IV CANNULA INTACT, MINIMAL BLEEDING NOTED. TELE MONITOR REMOVED. PATIENT SIGNED PAPERWORK. PATIENT'S MEDICATIONS TAKEN BACK FROM PHARMACY. PATIENT WILL BE CLEANED AND CHANGED INTO HER OWN CLOTHING SO THAT SHE CAN BE DISCHARGE HOME VIA [facility]AXI CAB.
--- NOTE | 2019-10-23 16:40 | NUR ---
PATIENT WHEELED OFF FLOOR WITH RN. PATIENT TOOK ALL HER BELONGINGS WITH HER. PATIENT WILL BE TAKING TAXICAB TO HER RESIDENCE. SON AND WAITING ARE AWARE.
== END 2019-10-23 17:00 | disposition home health service (06) | DRG 291 ==
LOC: MED 10:06 → MTU 14:03
PROVIDERS: ADMIT Internal Medicine Pulmonary Disease; ATTEND Internal Medicine Pulmonary Disease
DX: I11.0 Hypertensive heart disease with heart failure (principal); J18.9 Pneumonia, unspecified organism; J45.901 Unspecified asthma with (acute) exacerbation; N39.0 Urinary tract infection, site not specified; I50.43 Acute on chronic combined systolic (congestive) and diastolic (congestive) heart failure; E66.01 Morbid (severe) obesity due to excess calories; E78.00 Pure hypercholesterolemia, unspecified; E78.5 Hyperlipidemia, unspecified; E87.6 Hypokalemia; E11.649 Type 2 diabetes mellitus with hypoglycemia without coma; I48.91 Unspecified atrial fibrillation; Z79.899 Other long term (current) drug therapy; Z68.30 Body mass index [BMI] 30.0-30.9, adult
CPT/HCPCS: 36415; 71045; 80048; 80053; 81001; 82948; 83605; 83735; 83880; 84484; 85025; 85610; 85730; 87040; 87081; 87086; 87804; 93005; 94640; 96361; 96365; 96366; 96375; 97112; 97116; 97161-GP; 99291; J0456; J0696; J1650; J1815; J1940; J2060; J2920; J2930; J3475; J3480; J7060; J7613; J7620; J7644; Q0092